=== PATIENT | male | born 1985 | race Caucasian/White ===

== ENCOUNTER 2021-04-11 07:27 | Outpatient (REF) | payer OTHER, SELFPAY ==
[2021-04-11 11:32] LABS: MANUAL DIFF FLAG NO
[2021-04-11 11:43] LABS: Basophils Percent Auto 0.5 % (0-2); Eosinophils Absolute Auto 0.1 X10*3/uL (0.0-0.4); Eosinophils Percent Auto 1.5 % (0-4); Hematocrit 42.1 % (42.0-52.0); Hemoglobin 13.6 g/dl (14.0-18.0); Imm Gran Abs Auto 0.01 X10*3/uL (0.00-0.03); Imm Gran Pct Auto 0.2 % (0.0-0.4); Lymphocytes Percent Auto 31.1 % (20-40); Mean Corpuscular HGB Conc 32.3 g/dl (31.0-36.0); Mean Corpuscular Hemoglobin 27.7 pg (27.0-33.0); Mean Corpuscular Volume 85.7 fL (80.0-98.0); Mean Platelet Volume 10.9 fL (9.4-12.4); Monocytes Absolute Auto 0.6 X10*3/uL (0.1-1.2); Monocytes Percent Auto 8.5 % (2-11); Neutrophils Absolute Auto 3.8 x10*3/uL (2.0-8.3); Neutrophils Percent Auto 58.2 % (45-73); Platelet Count 236 X10*3/uL (160-400); Red Blood Count 4.91 X10*6/uL (4.60-5.80); Red Cell Distribution Width 12.9 % (11.0-16.0); White Blood Count 6.6 X10*3/uL (4.8-10.8)
[2021-04-11 11:54] LABS: Estimated Average Glucose 131 mg/dL; Hemoglobin A1c % 6.2 %
[2021-04-11 12:08] LABS: Alanine Aminotransferase 47 U/L (0-40); Albumin Level 4.4 g/dL (3.5-5.0); Alkaline Phosphatase 70 U/L (39-117); Anion Gap 11 (12-20); Aspartate Amino Transferase 29 U/L (5-37); Bilirubin Total 0.6 mg/dL (0.0-1.0); Blood Urea Nitrogen 10 mg/dL (9-16); Calcium 9.3 mg/dL (8.4-10.2); Carbon Dioxide 25 mmol/L (22-29); Chloride 106 mmol/L (96-108); Cholesterol 198 mg/dL; Estimated Glomerular Filt Rate > 60; Glucose Fasting 119 mg/dL (60-99); HDL Cholesterol 29 mg/dL; LDL Cholesterol Calculated 138 mg/dl; Potassium 4.2 mmol/L (3.3-5.1); Sodium 138 mmol/L (135-145); Total Protein 7.3 g/dL (6.5-8.0); Triglycerides 155 mg/dL
[2021-04-11 12:19] LABS: TSH reflex Free T4 1.67 uIU/mL (0.32-4.0)
== END 2021-04-11 07:28 | disposition home or self-care (01) ==
LOC: HO.HMGCLDS 07:27
PROVIDERS: PCP Internal Medicine; Visit Provider Internal Medicine
DX: E66.09 Other obesity due to excess calories (principal); E78.9 Disorder of lipoprotein metabolism, unspecified; F41.1 Generalized anxiety disorder; R73.03 Prediabetes
CPT/HCPCS: 36415; 80053; 80061; 83036; 84443; 85025

== ENCOUNTER 2021-12-26 15:05 | Outpatient (REF) | payer OTHER, SELFPAY ==
[2021-12-26 15:59] LABS: MANUAL DIFF FLAG NO
[2021-12-26 16:03] LABS: Basophils Absolute Auto 0.1 X10*3/uL (0.0-0.2); Basophils Percent Auto 0.9 % (0-2); Eosinophils Absolute Auto 0.1 X10*3/uL (0.0-0.4); Eosinophils Percent Auto 1.2 % (0-4); Hematocrit 40.3 % (42.0-52.0); Hemoglobin 13.2 g/dl (14.0-18.0); Imm Gran Abs Auto 0.02 X10*3/uL (0.00-0.03); Imm Gran Pct Auto 0.3 % (0.0-0.4); Lymphocytes Absolute Auto 2.1 X10*3/uL (1.2-4.9); Lymphocytes Percent Auto 32.8 % (20-40); Mean Corpuscular HGB Conc 32.8 g/dl (31.0-36.0); Mean Corpuscular Hemoglobin 27.4 pg (27.0-33.0); Mean Corpuscular Volume 83.8 fL (80.0-98.0); Mean Platelet Volume 10.2 fL (9.4-12.4); Monocytes Absolute Auto 0.6 X10*3/uL (0.1-1.2); Monocytes Percent Auto 8.6 % (2-11); Neutrophils Absolute Auto 3.7 x10*3/uL (2.0-8.3); Neutrophils Percent Auto 56.2 % (45-73); Platelet Count 233 X10*3/uL (160-400); Red Blood Count 4.81 X10*6/uL (4.60-5.80); White Blood Count 6.5 X10*3/uL (4.8-10.8)
[2021-12-26 16:17] LABS: Alanine Aminotransferase 58 U/L (0-40); Albumin Level 4.6 g/dL (3.5-5.0); Alkaline Phosphatase 73 U/L (39-117); Anion Gap 16 (12-20); Aspartate Amino Transferase 38 U/L (5-37); Bilirubin Total 0.4 mg/dL (0.0-1.0); Blood Urea Nitrogen 12 mg/dL (9-16); Calcium 9.3 mg/dL (8.4-10.2); Carbon Dioxide 25 mmol/L (22-29); Chloride 103 mmol/L (96-108); Estimated Glomerular Filt Rate > 60; Glucose Random 98 mg/dL (60-115); Potassium 3.9 mmol/L (3.3-5.1); Sodium 140 mmol/L (135-145); Total Protein 7.7 g/dL (6.5-8.0)
[2021-12-26 16:23] LABS: Estimated Average Glucose 140 mg/dL; Hemoglobin A1c % 6.5 %
[2021-12-27 13:47] LABS: LDL Cholesterol Direct 177 mg/dL (<100)
== END 2021-12-26 15:06 | disposition home or self-care (01) ==
LOC: HO.HMGCLDS 15:05
PROVIDERS: PCP Internal Medicine; Visit Provider Internal Medicine
DX: Z00.01 Encounter for general adult medical examination with abnormal findings (principal); E66.09 Other obesity due to excess calories; F41.1 Generalized anxiety disorder; R73.03 Prediabetes; J45.20 Mild intermittent asthma, uncomplicated
CPT/HCPCS: 36415; 80053; 83036; 83721; 85025

== ENCOUNTER 2023-01-02 08:13 | Outpatient (AMB) | payer OTHER, SELFPAY ==
--- NOTE | 2023-01-02 09:46 | A.OFFPC_ITS ---
Intake Visit Reasons: Med Follow up~ Allergies lactose Allergy (Unknown, Verified 01/02/23 09:46) GI upset Seasonal Allergies Allergy (Unknown, Verified 01/02/23 09:46) Unknown Medication List - Last Reconciled 01/02/23 by Sanjuana Balbuena MD fluticasone propionate 50 mcg/actuation (Flonase Allergy Relief) 1 spray intranasal DAILY sertraline 25 mg PO DAILY 90 days Tobacco use date assessed: 01/02/23 Dental Screening Dental Screen Date: 01/02/23 Did you have a dental visit in the last 12 months?: Yes Did you have a dental problem in the last 6 months where you did not have access to dental care?: No Was dental information given to patient?: No HPI Med Follow up~ HPI Details Patient is 37-year-old male this is a telemedicine video conference follow-up Patient is on sertraline 25 mg for anxiety he is doing well no side effects , medication refill provided Patient have a pre diabetes and elevated cholesterol as well for that I would recommend diet controlled He will be having labs again before his next visit in April for physical examination. I have placed order patient is to do that fasting. He offer no new complaints today. [facility] Medical History Pre-diabetes Lipid disorder Asthma, intermittent Anxiety, generalized Surgical History History of wisdom tooth extraction Family History Father No problems noted. Mother HTN (hypertension) Mental health disorder Maternal Grandfather No problems noted. Maternal Grandmother No problems noted. Paternal Grandfather No problems noted. Paternal Grandmother No problems noted. Sister No problems noted. Daughter No problems noted. Social History Housing: House Alcohol intake: current Alcohol intake frequency: a few times a month Patient Tobacco Use Status: Never used Tobacco e-Cigarette/Vaping Use: Never Used service: No Current occupational status: employed Cognitive needs: No Hearing needs: No Vision needs: No Questionnaire Thrive Questionnaire Date Thrive assessed: 06/12/22 AUDIT C Alcohol Use Questionnaire (AUDIT-C) 1. How often do you have a drink containing alcohol?: Never 3. How often do you have six or more drinks on one occasion?: Never Total Score: 0 Score Reviewed/Action Taken: Yes LETICIA-7 AMB Questionnaire LETICIA-7 Date LETICIA - 7 assessed: 06/12/22 Source: Developed by Drs. Jones Brian, Zainab Putnam, Edmond Hansen and colleagues, with an educational ann from [employer]. Review of Systems Const Denies chills and Denies fever(s) ENT Denies epistaxis and Denies nasal discharge Card Denies chest pain Resp Denies chest congestion, Denies cough and Denies hemoptysis GI Denies diarrhea and Denies nausea Skin/Breast Denies rash Neuro Reports no additional complaints Psych Reports no additional complaints Endo Reports no additional complaints Physical exam (Primary Care) Tobacco/Smoking Status: Tobacco use Status Tobacco use date assessed 01/02/23 01/02/23 09:47 Patient Tobacco Use Status Never used Tobacco 01/02/23 09:47 e-Cigarette/Vaping Use Never Used 01/02/23 09:47 Thrive Assessment: Date of Thrive Assessment Date Thrive assessed 06/12/22 01/02/23 09:47 Telehealth Telehealth Location of provider rendering services: practice address Location of patient: address on file Patient Identification confirmed using: Name, : Yes Telehealth method: video Patient verbally consented to treatment: Yes Patient verbally consented to billing insurance company: Yes Patient informed of any privacy concerns related to visit: Yes Minutes spent on Phone/Video with Pt.: 13 Assessment and Plan Assessment & Plan (1) Anxiety, generalized: Code(s): F41.1 - Generalized anxiety disorder (2) Pre-diabetes: Code(s): R73.03 - Prediabetes (3) Lipid disorder: Code(s): E78.9 - Disorder of lipoprotein metabolism, unspecified (4) Asthma, intermittent: Code(s): J45.20 - Mild intermittent asthma, uncomplicated Qualifiers: Asthma complication type: uncomplicated Asthma severity: mild Qualified Code(s): J45.20 - Mild intermittent asthma, uncomplicated Plan Patient is 37-year-old male this is a telemedicine video conference follow-up Patient is on sertraline 25 mg for anxiety he is doing well no side effects , medication refill provided Patient have a pre diabetes and elevated cholesterol as well for that I would recommend diet controlled He will be having labs again before his next visit in April for physical examination. I have placed order patient is to do that fasting. He offer no new complaints today. Orders: Orders Complete Blood Count Auto Diff Today E78.9 - Disorder of lipoprotein metabolism, unspecified, F41.1 - Generalized anxiety disorder, J45.20 - Mild intermittent asthma, uncomplicated, R73.03 - Prediabetes Comprehensive [place]. Panel Fast Today E78.9 - Disorder of lipoprotein metabolism, unspecified, F41.1 - Generalized anxiety disorder, J45.20 - Mild intermittent a sthma, uncomplicated, R73.03 - Prediabetes Lipid Panel Today E78.9 - Disorder of lipoprotein metabolism, unspecified, F41.1 - Generalized anxiety disorder, J45.20 - Mild intermittent asthma, uncomplicated, R73.03 - Prediabetes Hemoglobin A1c Today E78.9 - Disorder of lipoprotein metabolism, unspecified, F41.1 - Generalized anxiety disorder, J45.20 - Mild intermittent asthma, uncomplicated, R73.03 - Prediabetes Medications: Refilled sertraline 25 mg PO DAILY 90 tabs 1RF 90 days Coding Level of Care Code Tele Est Pt Level 3 (05792) Diagnoses Anxiety, generalized F41.1 Pre-diabetes R73.03 Lipid disorder E78.9 Mild intermittent asthma without complication J45.20 Asthma complication type: uncomplicated Asthma severity: mild
== END 2023-01-02 16:42 | disposition home or self-care (01) ==
LOC: HO.HMGC 08:13
PROVIDERS: PCP Internal Medicine; Visit Provider Internal Medicine
DX: F41.1 Generalized anxiety disorder (principal); R73.03 Prediabetes; E78.9 Disorder of lipoprotein metabolism, unspecified; J45.20 Mild intermittent asthma, uncomplicated
CPT/HCPCS: 99213

== ENCOUNTER 2023-05-27 08:37 | Outpatient (AMB) | payer BC, SELFPAY ==
[2023-05-27 08:42] VITALS: BP 136/70; PULSE 86; O2SAT 96; BMI 33.8
--- NOTE | 2023-05-27 08:42 | A.OFFPC_ITS ---
Vital Signs 05/27/23 08:42 Height 6 ft Weight 249 lb BMI 33.8 BP 136/70 Blood Pressure Location Rt brachial Position Sitting Pulse 86 Pulse Source Pulse Oximeter Pulse Oximetry (%) 96 Oxygen Delivery Method Room Air Intake Visit Reasons: Annual Physical Allergies lactose Allergy (Unknown, Verified 05/27/23 08:42) GI upset Seasonal Allergies Allergy (Unknown, Verified 05/27/23 08:42) Unknown Medication List - Last Reconciled 05/27/23 by Sanjuana Balbuena MD fluticasone propionate 50 mcg/actuation (Flonase Allergy Relief) 1 spray intranasal DAILY sertraline 25 mg PO DAILY 90 days Tobacco use date assessed: 05/27/23 Dental Screening Dental Screen Date: 05/27/23 Did you have a dental visit in the last 12 months?: Yes Did you have a dental problem in the last 6 months where you did not have access to dental care?: No Was dental information given to patient?: Patient has dentist HPI Annual Physical HPI Details Patient is a 38-year-old gentleman came in today for physical examination Patient have a history of lipid disorder: Intermittent asthma doing well at this time, allergies, obesity, anxiety. Blood pressure is stable BMI is elevated patient need to lose weight Anxiety stable Lab order placed to be done fasting Follow-up 6 months [facility] Medical History Pre-diabetes Lipid disorder Asthma, intermittent Anxiety, generalized Surgical History History of wisdom tooth extraction Family History Father No problems noted. Mother HTN (hypertension) Mental health disorder Maternal Grandfather No problems noted. Maternal Grandmother No problems noted. Paternal Grandfather No problems noted. Paternal Grandmother No problems noted. Sister No problems noted. Daughter No problems noted. Social History Housing: House Alcohol intake: current Alcohol intake frequency: a few times a month Patient Tobacco Use Status: Never used Tobacco e-Cigarette/Vaping Use: Never Used service: No Current occupational status: employed Cognitive needs: No Hearing needs: No Vision needs: No Questionnaire PHQ-9 Over the last 2 weeks, how often have you been bothered by any of the following problems? 1. Little interest or pleasure in doing things: not at all 2. Feeling down, depressed, or hopeless: not at all 3. Trouble falling or staying asleep, or sleeping too much: several days 4. Feeling tired or having little energy: not at all 5. Poor appetite or overeating: not at all 6. Feeling bad about yourself - or that you are a failure or have let yourself o r your family down: not at all 7. Trouble concentrating on things, such as reading the newspaper or watching television: not at all 8. Moving or speaking so slowly that other people could have noticed. Or the opposite - being so fidgety or restless that you have been moving around a lot more than usual: not at all 9. Thoughts that you would be better off or of hurting yourself in some way: not at all Total score: 1 Depression Screening Interpretation: Negative Depression Screening Done: Yes 52370 - PHQ-9 Billing: Yes Source: Developed by Drs. Jones Brian, Zainab Putnam, Edmond gerber nd colleagues, with an educational ann from [employer]. Thrive Questionnaire Date Thrive assessed: 06/12/22 AUDIT C Alcohol Use Questionnaire (AUDIT-C) 1. How often do you have a drink containing alcohol?: Monthly or less 2. How many drinks containing alcohol do you have on a typical day when you are drinking?: 1 or 2 3. How often do you have six or more drinks on one occasion?: Never Total Score: 1 Score Reviewed/Action Taken: Yes LETICIA-7 AMB Questionnaire LETICIA-7 Date LETICIA - 7 assessed: 05/27/23 Feeling nervous, anxious, or on edge: 0 = Not at all Not being able to stop or control worryin = Not at all Worrying too much about different things: 0 = Not at all Trouble relaxin = Not at all Being so restless that it is hard to sit still: 0 = Not at all Becoming easily annoyed or irritable: 0 = Not at all Feeling afraid as if something awful might happen: 0 = Not at all Total LETICIA-7 score (0-4 normal; 5-9 mild; 10-14 moderate; 15-21 severe): 0 Source: Developed by Drs. Jones Brian, Zainab Putnam, Edmond Hansen and colleagues, with an educational ann from [employer]. LETICIA-7 Assessment Billing LETICIA-7 Assessment Tool: LETICIA-7 Assessment 30633 Review of Systems Const Denies chills, Denies fever(s) and Denies headache(s) Eyes Denies blurry vision ENT Denies headache(s), Denies nasal discharge, Denies nasal obstruction, Denies odynophagia and Denies sinus pain Card Denies chest pain at rest and Denies chest pain with activity Resp Denies cough and Denies hemoptysis GI Denies diarrhea, Denies odynophagia, Denies vomiting and Denies hematemesis Reports as per HPI Musc Denies abnormal gait Skin/Breast Reports as per HPI Neuro Denies Neuro-related abnormal movements, Denies Abnormal speech present, Denies abnormal gait, Denies headache(s) and Denies Sensory deficit (Neuro) Psych Denies mood swings and Denies paranoia Endo Reports as per HPI Junior/Lymph Reports as per HPI Aller/Immun Reports as per HPI Physical exam (Primary Care) Vital Signs: Last Vital Signs Pulse 86 05/27/23 08:42 BP 136/70 05/27/23 08:42 Pulse Ox 96 05/27/23 08:42 Oxygen Delivery Method Room Air 05/27/23 08:42 BMI result Body Mass Index 33.8 Tobacco/Smoking Status: Tobacco use Status Tobacco use date assessed 05/27/23 05/27/23 08:46 Patient Tobacco Use Status Never used Tobacco 05/27/23 08:46 e-Cigarette/Vaping Use Never Used 05/27/23 08:46 PHQ-9: PHQ-9 Score PHQ-9: Total score 1 05/27/23 08:49 Depression Screening Interpretation: Negative Thrive Assessment: Date of Thrive Assessment Date Thrive assessed 06/12/22 05/27/23 08:46 Const General: cooperative, comfortable and no acute distress Orientation/consciousness: patient oriented x3 HENMT Head: Yes normocephalic and Yes atraumatic Eyes General: appearance normal, both eyes and all related structures Pupils: Equal, round and reactive pupils present EOM: EOMs intact bilaterally Neck Neck: Yes supple and No lymphadenopathy Thyroid: Thyroid normal Lymphatic: no lymphadenopathy noted Resp Effort & Inspection: normal respiratory effort and able to speak in complete sentences Auscultation: clear to auscultation bilaterally Cardio Heart sounds: S1 normal heart sound present and S2 normal heart sound present GI Palpation (GI): Soft to palpation and nontender Auscultation: normal bowel sounds General: Yes no CVA tenderness Back/Spine/Pelvis Back: no CVA tenderness Skin General skin exam: elasticity normal and turgor normal Neuro General: patient oriented x3 and gait normal Cranial nerves: Yes Equal, round and reactive pupils present Speech: No Abnormal speech present Sensory Exam: No Sensory deficit (Neuro) Coordination: tandem gait normal and Romberg test negative Extrem General: Yes normal exam except as noted and No edema Assessment and Plan Assessment & Plan (1) Encounter for general adult medical examination with abnormal findings: Code(s): Z00.01 - Encounter for general adult medical examination with abnormal findings (2) Obesity due to excess calories: Code(s): E66.09 - Other obesity due to excess calories Qualifiers: Obesity classification: adult class 1 (BMI 30 - 34.9) Serious obesity comorbidity presence: without serious comorbidity Body mass index: BMI 33.0- 33.9 Qualified Code(s): E66.09 - Other obesity due to excess calories; Z68.33 - Body mass index [BMI] 33.0-33.9, adult (3) Anxiety, generalized: Code(s): F41.1 - Generalized anxiety disorder (4) Pre-diabetes: Code(s): R73.03 - Prediabetes (5) Lipid disorder: Code(s): E78.9 - Disorder of lipoprotein metabolism, unspecified (6) Asthma, intermittent: Code(s): J45.20 - Mild intermittent asthma, uncomplicated Qualifiers: Asthma severity: mild Asthma complication type: uncomplicated Qualified Code(s): J45.20 - Mild intermittent asthma, uncomplicated (7) Dyspepsia: Code(s): R10.13 - Epigastric pain Plan Patient is a 38-year-old gentleman came in today for physical examination Patient have a history of lipid disorder: Intermittent asthma doing well at this time, allergies, obesity, anxiety. Blood pressure is stable BMI is elevated patient need to lose weight Anxiety stable Patient is also prediabetic Lab order placed to be done fasting Follow-up 6 months Coding Level of Care Code Est Pt Prev Care 40-64y(16068) Diagnoses Encounter for general adult medical examination with abnormal findings Z00.01 Class 1 obesity due to excess calories without serious comorbidity with body mass index (BMI) of 33.0 to 33.9 in adult E66.09; Z68.33 Obesity classification: adult class 1 (BMI 30 - 34.9) Serious obesity comorbidity presence: without serious comorbidity Body mass index: BMI 33.0-33.9 Anxiety, generalized F41.1 Pre-diabetes R73.03 Lipid disorder E78.9 Mild intermittent asthma without complication J45.20 Asthma severity: mild Asthma complication type: uncomplicated Dyspepsia R10.13 Additional Codes LETICIA-7 Assessment Billing - LETICIA-7 Assessment Tool: LETICIA-7 Assessment 27725 ([id number])
== END 2023-05-27 09:01 | disposition home or self-care (01) ==
PROVIDERS: PCP Internal Medicine; Visit Provider Internal Medicine
DX: Z00.00 Encounter for general adult medical examination without abnormal findings (principal); E66.09 Other obesity due to excess calories; Z68.33 Body mass index [BMI] 33.0-33.9, adult; F41.1 Generalized anxiety disorder; R73.03 Prediabetes; E78.9 Disorder of lipoprotein metabolism, unspecified; J45.20 Mild intermittent asthma, uncomplicated
CPT/HCPCS: 99396

== ENCOUNTER 2023-05-27 09:02 | Outpatient (REF) | payer BC, SELFPAY ==
[2023-05-27 10:23] LABS: MANUAL DIFF FLAG NO
[2023-05-27 10:39] LABS: Basophils Percent Auto 0.7 % (0-2); Eosinophils Absolute Auto 0.1 X10*3/uL (0.0-0.4); Eosinophils Percent Auto 0.8 % (0-4); Hemoglobin 13.5 g/dl (14.0-18.0); Imm Gran Abs Auto 0.02 X10*3/uL (0.00-0.03); Imm Gran Pct Auto 0.3 % (0.0-0.4); Lymphocytes Absolute Auto 2.1 X10*3/uL (1.2-4.9); Lymphocytes Percent Auto 33.8 % (20-40); Mean Corpuscular HGB Conc 32.1 g/dl (31.0-36.0); Mean Corpuscular Hemoglobin 27.3 pg (27.0-33.0); Mean Platelet Volume 10.7 fL (9.4-12.4); Monocytes Absolute Auto 0.5 X10*3/uL (0.1-1.2); Monocytes Percent Auto 8.3 % (2-11); Neutrophils Absolute Auto 3.5 x10*3/uL (2.0-8.3); Neutrophils Percent Auto 56.1 % (45-73); Platelet Count 223 X10*3/uL (160-400); Red Blood Count 4.94 X10*6/uL (4.60-5.80); Red Cell Distribution Width 13.1 % (11.0-16.0); White Blood Count 6.2 X10*3/uL (4.8-10.8)
[2023-05-27 10:42] LABS: Estimated Average Glucose 140 mg/dL; Hemoglobin A1c % 6.5 % (<6.0)
[2023-05-27 10:55] LABS: Alanine Aminotransferase 45 U/L (0-40); Albumin Level 4.3 g/dL (3.5-5.0); Alkaline Phosphatase 69 U/L (39-117); Anion Gap 13 (12-20); Aspartate Amino Transferase 26 U/L (5-37); Bilirubin Total 0.4 mg/dL (0.0-1.0); Blood Urea Nitrogen 13 mg/dL (9-16); Calcium 9.1 mg/dL (8.4-10.2); Carbon Dioxide 24 mmol/L (22-29); Chloride 105 mmol/L (96-108); Cholesterol 201 mg/dL (<200); Estimated Glomerular Filt Rate > 60; Glucose Fasting 137 mg/dL (60-99); HDL Cholesterol 32 mg/dL (>40); LDL Cholesterol Calculated 148 mg/dL (<100); Potassium 4.2 mmol/L (3.3-5.1); Sodium 138 mmol/L (135-145); Total Protein 7.6 g/dL (6.5-8.0); Triglycerides 109 mg/dL (<150)
== END 2023-05-27 09:03 | disposition home or self-care (01) ==
LOC: HO.HMGCLDS 09:02
PROVIDERS: PCP Internal Medicine; Visit Provider Internal Medicine
DX: F41.1 Generalized anxiety disorder (principal); R73.03 Prediabetes; E78.9 Disorder of lipoprotein metabolism, unspecified; J45.20 Mild intermittent asthma, uncomplicated
CPT/HCPCS: 36415; 80053; 80061; 83036; 85025

== ENCOUNTER 2023-11-25 09:37 | Outpatient (AMB) | payer BC, SELFPAY ==
[2023-11-25 09:38] VITALS: BP 126/78; PULSE 82; O2SAT 95; BMI 34.5
--- NOTE | 2023-11-25 09:38 | A.OFFPC_ITS ---
Vital Signs 11/25/23 09:38 Height 6 ft Weight 254 lb 4 oz BMI 34.5 BP 126/78 Blood Pressure Location Rt brachial Position Sitting Pulse 82 Pulse Source Pulse Oximeter Pulse Oximetry (%) 95 Oxygen Delivery Method Room Air Intake Visit Reasons: 6 month follow up Allergies lactose Allergy (Unknown, Verified 11/25/23 09:41) GI upset Seasonal Allergies Allergy (Unknown, Verified 11/25/23 09:41) Unknown Medication List - Last Reconciled 11/25/23 by Sanjuana Balbuena MD fluticasone propionate 50 mcg/actuation (Flonase Allergy Relief) 1 spray intranasal DAILY sertraline 25 mg PO DAILY 90 days Tobacco use date assessed: 11/25/23 Dental Screening Dental Screen Date: 11/25/23 Did you have a dental visit in the last 12 months?: Yes Did you have a dental problem in the last 6 months where you did not have access to dental care?: No Was dental information given to patient?: Patient has dentist HPI 6 month follow up HPI Details Patient is a 38-year-old gentleman with a history of lipid disorder, intermittent asthma, anxiety, obesity, allergies, diabetes mellitus diet- controlled Came in for his follow-up appointment Patient is doing well, offers no new complaints today , he is going to [facility] next month His hemoglobin A1c came back at 7.5 after patient left We will book a telemedicine visit for this week to talk about it Labs done in April reviewed I see that he has gained 5 lb since April We talked about obesity today, I would recommend for him to start exercising and eat healthy Labs need to be repeated before next visit for physical exam in 6 months He has slightly elevated LFT of 45 ALT which is stable LDL was 148 in April we will continue to monitor Follow-up 3 months [facility] Medical History Pre-diabetes Lipid disorder Asthma, intermittent Anxiety, generalized Surgical History History of wisdom tooth extraction Family History Father No problems noted. Mother HTN (hypertension) Mental health disorder Maternal Grandfather No problems noted. Maternal Grandmother No problems noted. Paternal Grandfather No problems noted. Paternal Grandmother No problems noted. Sister No problems noted. Daughter No problems noted. Social History Housing: House Alcohol intake: current Alcohol intake frequency: a few times a month Patient Tobacco Use Status: Never used Tobacco e-Cigarette/Vaping Use: Never Used service: No Current occupational status: employed Cognitive needs: No Hearing needs: No Vision needs: No Questionnaire PHQ-9 Over the last 2 weeks, how often have you been bothered by any of the following problems? 1. Little interest or pleasure in doing things: not at all 2. Feeling down, depressed, or hopeless: not at all 3. Trouble falling or staying asleep, or sleeping too much: not at all 4. Feeling tired or having little energy: not at all 5. Poor appetite or overeating: not at all 6. Feeling bad about yourself - or that you are a failure or have let yourself or your family down: not at all 7. Trouble concentrating on things, such as reading the newspaper or watching television: not at all 8. Moving or speaking so slowly that other people could have noticed. Or the opposite - being so fidgety or restless that you have been moving around a lot more than usual: not at all 9. Thoughts that you would be better off or of hurting yourself in some way: not at all Total score: 0 Depression Screening Interpretation: Negative Depression Screening Done: Yes 18275 - PHQ-9 Billing: Yes Source: Developed by Drs. Jones Brian, Zainab Putnam, Edmond Hansen and colleagues, with an educational ann from [employer]. Thrive Questionnaire Date Thrive assessed: 11/25/23 I am a: Patient What is your living situation today?: I have a steady place to live Within the past 12 months, did the food you bought not last and you didn't have the money to get more?: Never true Within the past 12 months, did you worry whether your food would run out before you got money to buy more?: Never true Do you have trouble paying for medicines?: No Do you have trouble getting transportation to medical appointments?: No Do you have trouble paying your heating and electricity bill?: No Do you have trouble taking care of your child, family member or friend?: No Do you have trouble with day-to-day activities such as bathing, preparing meals, shopping, managing finances, etc.?: No Are you currently unemployed and looking for a job?: No Are you interested in more education?: No Please select the resources that you would like help with: Housing/[facility] Currently or been in a relationship where the following occur: No concerns reported THRIVE Score: 0 AUDIT C Alcohol Use Questionnaire (AUDIT-C) 1. How often do you have a drink containing alcohol?: 2-4 times a month 2. How many drinks containing alcohol do you have on a typical day when you are drinking?: 1 or 2 3. How often do you have six or more drinks on one occasion?: Never Total Score: 2 Score Reviewed/Action Taken: Yes LETICIA-7 AMB Questionnaire LETICIA-7 Date LETICIA - 7 assessed: 11/25/23 Feeling nervous, anxious, or on edge: 0 = Not at all Not being able to stop or control worryin = Not at all Worrying too much about different things: 0 = Not at all Trouble relaxin = Not at all Being so restless that it is hard to sit still: 0 = Not at all Becoming easily annoyed or irritable: 0 = Not at all Feeling afraid as if something awful might happen: 0 = Not at all Total LETICIA-7 score (0-4 normal; 5-9 mild; 10-14 moderate; 15-21 severe): 0 Source: Developed by Drs. Jones Brian, Zainab Putnam, Edmond Hansen and colleagues, with an educational ann from [employer]. LETICIA-7 Assessment Billing LETICIA-7 Assessment Tool: LETICIA-7 Assessment 65759 Review of Systems Const Denies chills and Denies fever(s) ENT Denies epistaxis and Denies nasal discharge Card Denies chest pain Resp Denies chest congestion, Denies cough and Denies hemoptysis GI Denies diarrhea and Denies nausea Skin/Breast Denies rash Neuro Reports no additional complaints Psych Reports no additional complaints Endo Reports no additional complaints Physical exam (Primary Care) Vital Signs: Last Vital Signs Pulse 82 11/25/23 09:38 BP 126/78 11/25/23 09:38 Pulse Ox 95 11/25/23 09:38 Oxygen Delivery Method Room Air 11/25/23 09:38 BMI result Body Mass Index 34.5 Tobacco/Smoking Status: Tobacco use Status Tobacco use date assessed 11/25/23 11/25/23 09:42 Patient Tobacco Use Status Never used Tobacco 11/25/23 09:42 e-Cigarette/Vaping Use Never Used 11/25/23 09:42 PHQ-9: PHQ-9 Score PHQ-9: Total score 0 11/25/23 10:00 Depression Screening Interpretation: Negative Thrive Assessment: Date of Thrive Assessment Date Thrive assessed 11/25/23 11/25/23 09:42 Currently or been in a relationship where the following occur: No concerns reported Const General: cooperative, comfortable and no acute distress Orientation/consciousness: patient oriented x3 HENMT Head: Yes normocephalic Eyes General: appearance normal, both eyes and all related structures Neck Neck: Yes supple Resp Effort & Inspection: normal respiratory effort, no cough and no stridor Cardio Rhythm: regular rhythm Heart sounds: S1 normal heart sound present and S2 normal heart sound present Skin General skin exam: turgor normal Neuro General: patient oriented x3, tone normal and moves all extremities Extrem Right lower extremity: no edema Left lower extremity: no edema Results AMB Hemoglobin A1c AMB Hemoglobin A1c 7.5 % Last Edit by Helder Beck CMA on 11/25/23 10: 10 Results Reviewed Results Reviewed: Laboratory Last Values Hgb A1c (Clinic) 7.5 % (4.0-6.0) H 11/25/23 10:10 Assessment and Plan Assessment & Plan (1) Diet-controlled diabetes mellitus: Code(s): E11.9 - Type 2 diabetes mellitus without complications (2) Anxiety, generalized: Code(s): F41.1 - Generalized anxiety disorder (3) Obesity due to excess calories: Code(s): E66.09 - Other obesity due to excess calories Qualifiers: Body mass index: BMI 33.0-33.9 Obesity classification: adult class 1 (BMI 30 - 34.9) Serious obesity comorbidity presence: without serious comorbidity Qualified Code(s): E66.09 - Other obesity due to excess calories; Z68.33 - Body mass index [BMI] 33.0-33.9, adult (4) Lipid disorder: Code(s): E78.9 - Disorder of lipoprotein metabolism, unspecified (5) Asthma, intermittent: Code(s): J45.20 - Mild intermittent asthma, uncomplicated Qualifiers: Asthma complication type: uncomplicated Asthma severity: mild Qualified Code(s): J45.20 - Mild intermittent asthma, uncomplicated Plan Patient is a 38-year-old gentleman with a history of lipid disorder, intermittent asthma, anxiety, obesity, allergies, diabetes mellitus diet- controlled Came in for his follow-up appointment Patient is doing well, offers no new complaints today , he is going to [facility] next month His hemoglobin A1c came back at 7.5 after patient left We will book a telemedicine visit for this week to talk about it Labs done in April reviewed I see that he has gained 5 lb since April We talked about obesity today, I would recommend for him to start exercising and eat healthy Labs need to be repeated before next visit for physical exam in 6 months He has slightly elevated LFT of 45 ALT which is stable LDL was 148 in April we will continue to monitor Follow-up 3 months Orders: Orders Complete Blood Count Auto Diff Today E11.9 - Type 2 diabetes mellitus without complications, E66.09 - Other obesity due to excess calories, E78.9 - Disorder of lipoprotein metabolism, unspecified, F41.1 - Generalized anxiety disorder, J45.20 - Mild intermittent asthma, uncomplicated, Z68.33 - Body mass index [BMI] 33.0-33.9, adult Comprehensive [place]. Panel Fast Today E11.9 - Type 2 diabetes mellitus without complications, E66.09 - Other obesity due to excess calories, E78.9 - Disorder of lipoprotein metabolism, unspecified, F41.1 - Generalized anxiety disorder, J45.20 - Mild intermittent asthma, uncomplicated, Z68.33 - Body mass index [BMI] 33.0-33.9, adult Microalbumin, Random (w Creat) Today E11.9 - Type 2 diabetes mellitus without complications, E66.09 - Other obesity due to excess calories, E78.9 - Disorder of lipoprotein metabolism, unspecified, F41.1 - Generalized anxiety disorder, J45.20 - Mild intermittent asthma, uncomplicated, Z68.33 - Body mass index [BMI] 33.0-33.9, adult Hemoglobin A1c Today E11.9 - Type 2 diabetes mellitus without complications, E66.09 - Other obesity due to excess calories, E78.9 - Disorder of lipoprotein metabolism, unspecified, F41.1 - Generalized anxiety disorder, J45.20 - Mild i ntermittent asthma, uncomplicated, Z68.33 - Body mass index [BMI] 33.0-33.9, adult Lipid Panel Today E11.9 - Type 2 diabetes mellitus without complications, E66.09 - Other obesity due to excess calories, E78.9 - Disorder of lipoprotein metabolism, unspecified, F41.1 - Generalized anxiety disorder, J45.20 - Mild intermittent asthma, uncomplicated, Z68.33 - Body mass index [BMI] 33.0-33.9, adult AMB Hemoglobin A1c Today Z13.9 - Encounter for screening, unspecified Coding Level of Care Code Est Pt Level 4 (53811) Diagnoses Diet-controlled diabetes mellitus E11.9 Anxiety, generalized F41.1 Class 1 obesity due to excess calories without serious comorbidity with body mass index (BMI) of 33.0 to 33.9 in adult E66.09; Z68.33 Body mass index: BMI 33.0-33.9 Obesity classification: adult class 1 (BMI 30 - 34.9) Serious obesity comorbidity presence: without serious comorbidity Lipid disorder E78.9 Mild intermittent asthma without complication J45.20 Asthma complication type: uncomplicated Asthma severity: mild Additional Codes LETICIA-7 Assessment Billing - LETICIA-7 Assessment Tool: LETICIA-7 Assessment [id number] ([id number])
== END 2023-11-25 09:58 | disposition home or self-care (01) ==
PROVIDERS: PCP Internal Medicine; Visit Provider Internal Medicine
DX: E11.9 Type 2 diabetes mellitus without complications (principal); F41.1 Generalized anxiety disorder; E66.09 Other obesity due to excess calories; Z68.33 Body mass index [BMI] 33.0-33.9, adult; E78.9 Disorder of lipoprotein metabolism, unspecified; J45.20 Mild intermittent asthma, uncomplicated
CPT/HCPCS: 83036; 99214

== ENCOUNTER 2024-02-27 11:52 | Outpatient (AMB) | payer BC, SELFPAY ==
[2024-02-27 12:00] VITALS: BP 122/80; PULSE 86; O2SAT 98; BMI 32.5
--- NOTE | 2024-02-27 12:00 | A.OFFPC_ITS ---
Vital Signs 02/27/24 12:00 Height 6 ft Weight 240 lb BMI 32.5 BP 122/80 Blood Pressure Location Rt brachial Position Sitting Pulse 86 Pulse Source Pulse Oximeter Pulse Oximetry (%) 98 Intake Visit Reasons: 3M F/u~ Allergies lactose Allergy (Unknown, Verified 02/27/24 12:02) GI upset Seasonal Allergies Allergy (Unknown, Verified 02/27/24 12:02) Unknown Medication List - Last Reviewed 02/27/24 by Helder Beck CMA blood sugar diagnostic (FreeStyle Lite Strips) Check blood sugar once daily As directed blood-glucose meter (FreeStyle Lite Meter kit) Check blood sugar once daily As directed fluticasone propionate 50 mcg/actuation (Flonase Allergy Relief) 1 spray intranasal DAILY lancets (FreeStyle Lancets) Check blood sugar once daily As directed metformin 850 mg PO DAILY sertraline 25 mg PO DAILY 90 days Tobacco use date assessed: 11/25/23 Dental Screening Dental Screen Date: 11/25/23 HPI 3M F/u~ HPI Details Patient is a 39-year-old gentleman with a history of lipid disorder, interm ittent asthma, anxiety, obesity, allergies, diabetes mellitus Came in for his follow-up appointment Patient was supposed to have labs done before this visit but he forgot He will have it done tomorrow Patient is doing well, offers no new complaints today His last hemoglobin A1c was 7.5 after Need to lose weight, patient is trying Slight elevation in LFT, we are monitoring it Follow-up May for physical exam [facility] Medical History Pre-diabetes Lipid disorder Asthma, intermittent Anxiety, generalized Surgical History History of wisdom tooth extraction Family History Father No problems noted. Mother HTN (hypertension) Mental health disorder Maternal Grandfather No problems noted. Maternal Grandmother No problems noted. Paternal Grandfather No problems noted. Paternal Grandmother No problems noted. Sister No problems noted. Daughter No problems noted. Social History Housing: House Alcohol intake: current Alcohol intake frequency: a few times a month Patient Tobacco Use Status: Never used Tobacco e-Cigarette/Vaping Use: Never Used service: No Current occupational status: employed Cognitive needs: No Hearing needs: No Vision needs: No Questionnaire Thrive Questionnaire Date Thrive assessed: 11/25/23 I am a: Patient What is your living situation today?: I have a steady place to live Within the past 12 months, did the food you bought not last and you didn't have the money to get more?: Never true Within the past 12 months, did you worry whether your food would run out before you got money to buy more?: Never true Do you have trouble paying for medicines?: No Do you have trouble getting transportation to medical appointments?: No Do you have trouble paying your heating and electricity bill?: No Do you have trouble taking care of your child, family member or friend?: No Do you have trouble with day-to-day activities such as bathing, preparing meals, shopping, managing finances, etc.?: No Are you currently unemployed and looking for a job?: No Are you interested in more education?: No Please select the resources that you would like help with: None Currently or been in a relationship where the following occur: No concerns reported THRIVE Score: 0 LETICIA-7 AMB Questionnaire LETICIA-7 Date LETICIA - 7 assessed: 11/25/23 Source: Developed by Drs. Jones Brian, Zainab Putnam, Edmond Hansen and colleagues, with an educational ann from [employer]. Review of Systems Const Denies chills and Denies fever(s) ENT Denies epistaxis and Denies nasal discharge Card Denies chest pain Resp Denies chest congestion, Denies cough and Denies hemoptysis GI Denies diarrhea and Denies nausea Skin/Breast Denies rash Neuro Reports no additional complaints Psych Reports no additional complaints Endo Reports no additional complaints Physical exam (Primary Care) Vital Signs: Last Vital Signs Pulse 86 02/27/24 12:00 BP 122/80 02/27/24 12:00 Pulse Ox 98 02/27/24 12:00 BMI result Body Mass Index 32.5 Tobacco/Smoking Status: Tobacco use Status Tobacco use date assessed 11/25/23 02/27/24 12:02 Patient Tobacco Use Status Never used Tobacco 02/27/24 12:02 e-Cigarette/Vaping Use Never Used 02/27/24 12:02 Thrive Assessment: Date of Thrive Assessment Date Thrive assessed 11/25/23 02/27/24 12:02 Currently or been in a relationship where the following occur: No concerns reported Const General: cooperative, comfortable and no acute distress Orientation/consciousness: patient oriented x3 HENMT Head: Yes normocephalic Eyes General: appearance normal, both eyes and all related structures Neck Neck: Yes supple Resp Effort & Inspection: normal respiratory effort, no cough and no stridor Cardio Rhythm: regular rhythm Heart sounds: S1 normal heart sound present and S2 normal heart sound present Skin General skin exam: turgor normal Neuro General: patient oriented x3, tone normal and moves all extremities Extrem Right lower extremity: no edema Left lower extremity: no edema Coding Level of Care Code Est Pt Level 4 (37465) Diagnoses Controlled type 2 diabetes mellitus with other specified complication, without long-term current use of insulin E11.69 Diabetes mellitus fci insulin use: without computer terminal operator use Diabetes mellitus complication status: with other specified complication Anxiety, generalized F41.1 Lipid disorder E78.9 Class 1 obesity due to excess calories without serious comorbidity with body mass index (BMI) of 33.0 to 33.9 in adult E66.09; Z68.33 Obesity classification: adult class 1 (BMI 30 - 34.9) Serious obesity comorbidity presence: without serious comorbidity Body mass index: BMI 33.0-33.9 Mild intermittent asthma without complication J45.20 Asthma severity: mild Asthma complication type: uncomplicated Assessment & Plan Assessment & Plan (1) Diabetes mellitus type 2, controlled: Code(s): E11.9 - Type 2 diabetes mellitus without complications Category: Medical Qualifiers: Diabetes mellitus computer terminal operator insulin use: without computer terminal operator use Diabetes mellitus complication status: with other specified complication Qualified Code(s): E11.69 - Type 2 diabetes mellitus with other specified complication (2) Anxiety, generalized: Code(s): F41.1 - Generalized anxiety disorder Category: Medical (3) Lipid disorder: Code(s): E78.9 - Disorder of lipoprotein metabolism, unspecified Category: Medical (4) Obesity due to excess calories: Code(s): E66.09 - Other obesity due to excess calories Category: Medical Qualifiers: Obesity classification: adult class 1 (BMI 30 - 34.9) Serious obesity comorbidity presence: without serious comorbidity Body mass index: BMI 33.0- 33.9 Qualified Code(s): E66.09 - Other obesity due to excess calories; Z68.33 - Body mass index [BMI] 33.0-33.9, adult (5) Asthma, intermittent: Code(s): J45.20 - Mild intermittent asthma, uncomplicated Category: Medical Qualifiers: Asthma severity: mild Asthma complication type: uncomplicated Qualified Code(s): J45.20 - Mild intermittent asthma, uncomplicated Plan Patient is a 39-year-old gentleman with a history of lipid disorder, intermittent asthma, anxiety, obesity, allergies, diabetes mellitus Came in for his follow-up appointment Patient was supposed to have labs done before this visit but he forgot He will have it done tomorrow Patient is doing well, offers no new complaints today His last hemoglobin A1c was 7.5 after Anxiety stable, patient is taking sertraline 25 mg Allergies controlled with Flonase nasal spray Need to lose weight, patient is trying Slight elevation in LFT, we are monitoring it Follow-up May for physical exam
== END 2024-02-27 13:16 | disposition home or self-care (01) ==
LOC: HO.HMCC 11:53
PROVIDERS: PCP Internal Medicine; Visit Provider Internal Medicine
DX: E11.69 Type 2 diabetes mellitus with other specified complication (principal); F41.1 Generalized anxiety disorder; E78.9 Disorder of lipoprotein metabolism, unspecified; E66.09 Other obesity due to excess calories; Z68.33 Body mass index [BMI] 33.0-33.9, adult; J45.20 Mild intermittent asthma, uncomplicated

== ENCOUNTER → 2024-02-27 11:52 | Outpatient (BNVA) | payer BC, SELFPAY | PROVIDERS: PCP Internal Medicine; Visit Provider Internal Medicine ==

== ENCOUNTER 2024-02-28 09:56 | Outpatient (REF) | payer BC, SELFPAY ==
[2024-02-28 11:18] LABS: MANUAL DIFF FLAG NO
[2024-02-28 11:22] LABS: Basophils Percent Auto 0.5 % (0-2); Eosinophils Absolute Auto 0.1 X10*3/uL (0.0-0.4); Eosinophils Percent Auto 1.2 % (0-4); Hematocrit 42.3 % (42.0-52.0); Hemoglobin 13.7 g/dl (14.0-18.0); Imm Gran Abs Auto 0.02 X10*3/uL (0.00-0.03); Imm Gran Pct Auto 0.3 % (0.0-0.4); Lymphocytes Absolute Auto 1.6 X10*3/uL (1.2-4.9); Lymphocytes Percent Auto 24.6 % (20-40); Mean Corpuscular HGB Conc 32.4 g/dl (31.0-36.0); Mean Corpuscular Hemoglobin 27.2 pg (27.0-33.0); Mean Corpuscular Volume 83.9 fL (80.0-98.0); Mean Platelet Volume 10.4 fL (9.4-12.4); Monocytes Absolute Auto 0.5 X10*3/uL (0.1-1.2); Monocytes Percent Auto 6.8 % (2-11); Neutrophils Absolute Auto 4.4 x10*3/uL (2.0-8.3); Neutrophils Percent Auto 66.6 % (45-73); Platelet Count 244 X10*3/uL (160-400); Red Blood Count 5.04 X10*6/uL (4.60-5.80); Red Cell Distribution Width 13.2 % (11.0-16.0); White Blood Count 6.6 X10*3/uL (4.8-10.8)
[2024-02-28 11:27] LABS: Estimated Average Glucose 137 mg/dL; Hemoglobin A1C 169.2317 umol/L; Hemoglobin A1c % 6.4 % (<6.0); Total Hemoglobin (HGBA1C) 3668.4262 umol/L
[2024-02-28 12:05] LABS: Alanine Aminotransferase 48 U/L (0-40); Albumin Level 4.5 g/dL (3.5-5.0); Alkaline Phosphatase 72 U/L (39-117); Anion Gap 14 (12-20); Aspartate Amino Transferase 31 U/L (5-37); Bilirubin Total 0.5 mg/dL (0.0-1.0); Blood Urea Nitrogen 12 mg/dL (9-16); Calcium 9.3 mg/dL (8.4-10.2); Carbon Dioxide 23 mmol/L (22-29); Chloride 105 mmol/L (96-108); Cholesterol 213 mg/dL (<200); Estimated Glomerular Filt Rate > 60; Glucose Fasting 143 mg/dL (60-99); HDL Cholesterol 35 mg/dL (>40); LDL Cholesterol Calculated 150 mg/dL (<100); Potassium 4.2 mmol/L (3.3-5.1); Sodium 138 mmol/L (135-145); Triglycerides 140 mg/dL (<150)
[2024-02-28 14:16] LABS: Creatinine Urine 330.88 mg/dL; Microalbum/Creatinine Ratio Ur 17.2 ug/mg cr (<30)
== END 2024-02-28 09:57 | disposition home or self-care (01) ==
LOC: HO.HMGCLDS 09:56
PROVIDERS: PCP Internal Medicine; Visit Provider Internal Medicine
DX: E11.9 Type 2 diabetes mellitus without complications (principal); E66.09 Other obesity due to excess calories; Z68.33 Body mass index [BMI] 33.0-33.9, adult; F41.1 Generalized anxiety disorder; E78.9 Disorder of lipoprotein metabolism, unspecified; J45.20 Mild intermittent asthma, uncomplicated
CPT/HCPCS: 36415; 80053; 80061; 82043; 82570; 83036; 85025

== ENCOUNTER 2024-06-02 11:34 | Outpatient (AMB) | payer BC, SELFPAY ==
[2024-06-02 11:36] VITALS: BP 126/74; PULSE 74; RESP 18; TEMP 36.8; O2SAT 96; BMI 33.4
--- NOTE | 2024-06-02 11:36 | A.OFFPC_ITS ---
Vital Signs 06/02/24 11:36 Height 6 ft Weight 246 lb BMI 33.4 BP 126/74 Blood Pressure Location Rt brachial Position Sitting Respiration 18 Pulse 74 Pulse Source Pulse Oximeter Temp 98.2 F Temp Source Oral Pulse Oximetry (%) 96 Oxygen Delivery Method Room Air Intake Visit Reasons: Annual Physical Allergies lactose Allergy (Unknown, Verified 06/02/24 11:36) GI upset Seasonal Allergies Allergy (Unknown, Verified 06/02/24 11:36) Unknown Medication List - Last Reconciled 06/02/24 by Sanjuana Balbuena MD blood sugar diagnostic (FreeStyle Lite Strips) Check blood sugar once daily As directed blood-glucose meter (FreeStyle Lite Meter kit) Check blood sugar once daily As directed fluticasone propionate 50 mcg/actuation (Flonase Allergy Relief) 1 spray intranasal DAILY lancets (FreeStyle Lancets) Check blood sugar once daily As directed metformin 850 mg PO DAILY sertraline 25 mg PO DAILY 90 days Tobacco use date assessed: 06/02/24 Dental Screening Dental Screen Date: 06/02/24 Did you have a dental visit in the last 12 months?: Yes Did you have a dental problem in the last 6 months where you did not have access to dental care?: No Was dental information given to patient?: Patient has dentist HPI Annual Physical HPI Details - The patient is a 39-year-old male pres enting for a physical exam and management of Type 2 Diabetes Mellitus and anxiety. - Reports average blood glucose control with metformin, influenced by frequent dietary choices. - Desires to discontinue sertraline due to concerns of weight gain, seeking advice on safe cessation. - Diagnosed with dyslipidemia; however, the patient prefers lifestyle modifications to reduce cholesterol levels at this time. - Chronic joint stiffness attributed to age but no acute exacerbations noted. Health Maintenance - Discussion of high LDL cholesterol con cerning cardiovascular risk, patient advised to consider medication but opted for weight management approach. - Recommended monitoring Hemoglobin A1c due to diabetes management considerations. 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 - Travels frequently to [facility] for work, enjoying cultural and culinary experiences. Diagnostic results - Labs: LDL cholesterol 150 mg/dL, sugge stive of dyslipidemia. - Prior labs reported to be conducted wi th follow-up on A1c suggested. Patient Instructions - Continue metformin 850 mg daily as pre scribed. - Consider options for discontinuing ser traline: either cease immediately, reduce gradually over a few days by takingg every other day for one week. - Plan on completing fasting labs, inclu ding A1c, before the end of the month. Follow-up six-month, physical exam 1 year Review of Systems - General: Reports improved overall feel ing but notes joint stiffness. - Respiratory: Denies chronic cough beyo nd occasional cold symptoms. - Musculoskeletal: Reports joint stiffne ss, attributing this to getting older. - Skin: Denies skin problems. - Neurological: No headaches no dizzin ess - Ear nose throat: No sore throat no hearing difficulty no ear pain - Cardiovascular: No syncope, no chest pain, no palpitations - Gastrointestinal: No nausea vomiting or diarrhea - Endocrine: No polyuria polydipsia no heat intolerance - Genitourinary: No dysuria Physical Exam General: Cooperative, healthy appearing, comfortable, no acute distress Orientation: Patient oriented x3 Limitations: None Head: Normal to inspection Ears: Within normal limit visually Nose: Normal external nose present Face and sinus: Normal facial exam Eyes: Appearance normal, extraocular movement intact pupils reactive Neck: Normal visual inspection and supple Respiratory: Normal respiratory effort and able to speak in complete sentences. Clear to auscultation, no stridor Cardiovascular: S1 and S2 GI: Normal to inspection. Soft to palpation and nontender Skin: Turgor normal, no acute findings Neuro: Patient oriented x3, motor sensory intact, balance intact, tandem pass Extremities: Normal to inspection, joints get stiffer faster now [facility] Medical History Pre-diabetes Lipid disorder Asthma, intermittent Anxiety, generalized Surgical History History of wisdom tooth extraction Family History Father No problems noted. Mother HTN (hypertension) Mental health disorder Maternal Grandfather No problems noted. Maternal Grandmother No problems noted. Paternal Grandfather No problems noted. Paternal Grandmother No problems noted. Sister No problems noted. Daughter No problems noted. Social History Housing: House Alcohol intake: current Alcohol intake frequency: a few times a month Patient Tobacco Use Status: Never used Tobacco e-Cigarette/Vaping Use: Never Used service: No Current occupational status: employed Cognitive needs: No Hearing needs: No Vision needs: No Questionnaire PHQ-9 Over the last 2 weeks, how often have you been bothered by any of the following problems? 1. Little interest or pleasure in doing things: not at all 2. Feeling down, depressed, or hopeless: not at all 3. Trouble falling or staying asleep, or sleeping too much: not at all 4. Feeling tired or having little energy: not at all 5. Poor appetite or overeating: not at all 6. Feeling bad about yourself - or that you are a failure or have let yourself or your family down: not at all 7. Trouble concentrating on things, such as reading the newspaper or watching television: not at all 8. Moving or speaking so slowly that other people could have noticed. Or the opposite - being so fidgety or restless that you have been moving around a lot more than usual: not at all 9. Thoughts that you would be better off or of hurting yourself in some way: not at all Total score: 0 Depression Screening Interpretation: Negative Depression Screening Done: Yes 35307 - PHQ-9 Billing: Yes Source: Developed by Drs. Jones Brian, Zainab Putnam, Edmond Hansen and colleagues, with an educational ann from [employer]. Thrive Questionnaire Date Thrive assessed: 06/02/24 I am a: Patient What is your living situation today?: I have a steady place to live Within the past 12 months, did the food you bought not last and you didn't have the money to get more?: Never true Within the past 12 months, did you worry whether your food would run out before you got money to buy more?: Never true Do you have trouble paying for medicines?: No Do you have trouble getting transportation to medical appointments?: No Do you have trouble paying your heating and electricity bill?: No Do you have trouble taking care of your child, family member or friend?: No Do you have trouble with day-to-day activities such as bathing, preparing meals, shopping, managing finances, etc.?: No Are you currently unemployed and looking for a job?: No Are you interested in more education?: No Please select the resources that you would like help with: None Currently or been in a relationship where the following occur: No concerns reported THRIVE Score: 0 AUDIT C Alcohol Use Questionnaire (AUDIT-C) 1. How often do you have a drink containing alcohol?: 2-4 times a month 2. How many drinks containing alcohol do you have on a typical day when you are drinking?: 1 or 2 3. How often do you have six or more drinks on one occasion?: Never Total Score: 2 Score Reviewed/Action Taken: Yes LETICIA-7 AMB Questionnaire LETICIA-7 Date LETICIA - 7 assessed: 06/02/24 Feeling nervous, anxious, or on edge: 0 = Not at all Not being able to stop or control worryin = Not at all Worrying too much about different things: 0 = Not at all Trouble relaxin = Not at all Being so restless that it is hard to sit still: 0 = Not at all Becoming easily annoyed or irritable: 0 = Not at all Feeling afraid as if something awful might happen: 0 = Not at all Total LETICIA-7 score (0-4 normal; 5-9 mild; 10-14 moderate; 15-21 severe): 0 Source: Developed by Drs. Jones Brian, Zainab Putnam, Edmond Hansen and colleagues, with an educational nan from [employer]. LETICIA-7 Assessment Billing LETICIA-7 Assessment Tool: LETICIA-7 Assessment 11697 Physical exam (Primary Care) Vital Signs: Last Vital Signs Temp 98.2 F 06/02/24 11:36 Pulse 74 06/02/24 11:36 Resp 18 06/02/24 11:36 BP 126/74 06/02/24 11:36 Pulse Ox 96 06/02/24 11:36 Oxygen Delivery Method Room Air 06/02/24 11:36 BMI result Body Mass Index 33.4 Tobacco/Smoking Status: Tobacco use Status Tobacco use date assessed 06/02/24 06/02/24 11:37 Patient Tobacco Use Status Never used Tobacco 06/02/24 11:37 e-Cigarette/Vaping Use Never Used 06/02/24 11:37 PHQ-9: PHQ-9 Score PHQ-9: Total score 0 06/02/24 11:37 Depression Screening Interpretation: Negative Thrive Assessment: Date of Thrive Assessment Date Thrive assessed 06/02/24 06/02/24 11:37 Currently or been in a relationship where the following occur: No concerns reported Coding Level of Care Code Est Pt Level 3 (05520) Est Pt Prev Care 40-64y(22674) Diagnoses Encounter for general adult medical examination with abnormal findings Z00.01 Controlled type 2 diabetes mellitus with other specified complication, without long-term current use of insulin E11.69 Diabetes mellitus complication status: with other specified complication Diabetes mellitus intermodal truck driver insulin use: without intermodal truck driver use Class 1 obesity due to excess calories without serious comorbidity with body mass index (BMI) of 33.0 to 33.9 in adult E66.09; Z68.33 Body mass index: BMI 33.0-33.9 Obesity classification: adult class 1 (BMI 30 - 34.9) Serious obesity comorbidity presence: without serious comorbidity Anxiety, generalized F41.1 Lipid disorder E78.9 Additional Codes LETICIA-7 Assessment Billing - LETICIA-7 Assessment Tool: LETICIA-7 Assessment 14051 ([id number]) PHQ-9 - 12190 - PHQ-9 Billing: Yes ([id number]) Assessment & Plan Assessment & Plan (1) Encounter for general adult medical examination with abnormal findings: Code(s): Z00.01 - Encounter for general adult medical examination with abnormal findings Category: Medical (2) Diabetes mellitus type 2, controlled: Code(s): E11.9 - Type 2 diabetes mellitus without complications Category: Medical Qualifiers: Diabetes mellitus complication status: with other specified complication Diabetes mellitus intermodal truck driver insulin use: without intermodal truck driver use Qualified Code(s): E11.69 - Type 2 diabetes mellitus with other specified complication (3) Obesity due to excess calories: Code(s): E66.09 - Other obesity due to excess calories Category: Medical Qualifiers: Body mass index: BMI 33.0-33.9 Obesity classification: adult class 1 (BMI 30 - 34.9) Serious obesity comorbidity presence: without serious comorbidity Qualified Code(s): E66.09 - Other obesity due to excess calories; Z68.33 - Body mass index [BMI] 33.0-33.9, adult (4) Anxiety, generalized: Code(s): F41.1 - Generalized anxiety disorder Category: Medical (5) Lipid disorder: Code(s): E78.9 - Disorder of lipoprotein metabolism, unspecified Category: Medical Plan - The patient is a 39-year-old male presenting for a physical exam and management of Type 2 Diabetes Mellitus and anxiety. - Reports average blood glucose control with metformin, influenced by frequent dietary choices. - Desires to discontinue sertraline due to concerns of weight gain, seeking advice on safe cessation. - Diagnosed with dyslipidemia; however, the patient prefers lifestyle modifications to reduce cholesterol levels at this time. - Chronic joint stiffness attributed to age but no acute exacerbations noted. Health Maintenance - Discussion of high LDL cholesterol concerning cardiovascular risk, patient advised to consider medication but opted for weight management approach. - Recommended monitoring Hemoglobin A1c due to diabetes management considerations. 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 - Travels frequently to [facility] for work, enjoying cultural and culinary experiences. Diagnostic results - Labs: LDL cholesterol 150 mg/dL, suggestive of dyslipidemia. - Prior labs reported to be conducted with follow-up on A1c suggested. Patient Instructions - Continue metformin 850 mg daily as prescribed. - Consider options for discontinuing sertraline: either cease immediately, reduce gradually over a few days by takingg every other day for one week. - Plan on completing fasting labs, including A1c, before the end of the month. Follow-up six-month, physical exam 1 year Orders: Orders Hemoglobin A1c Today E11.69 - Type 2 diabetes mellitus with other specified complication, E66.09 - Other obesity due to excess calories, E78.9 - Disorder of lipoprotein metabolism, unspecified, F41.1 - Generalized anxiety disorder, Z00.01 - Encounter for general adult medical examination with abnormal findings, Z68.33 - Body mass index [BMI] 33.0-33.9, adult Comprehensive [place]. Panel Fast Today E11.69 - Type 2 diabetes mellitus with other specified complication, E66.09 - Other obesity due to excess calories, E78.9 - Disorder of lipoprotein metabolism, unspecified, F41.1 - Generalized anxiety disorder, Z00.01 - Encounter for general adult medical examination with abnormal findings, Z68.33 - Body mass index [BMI] 33.0-33.9, adult Microalbumin, Random (w Creat) Today E11.69 - Type 2 diabetes mellitus with other specified complication, E66.09 - Other obesity due to excess calories, E78.9 - Disorder of lipoprotein metabolism, unspecified, F41.1 - Generalized anxiety disorder, Z00.01 - Encounter for general adult medical examination with abnormal findings, Z68.33 - Body mass index [BMI] 33.0-33.9, adult Lipid Panel Today E11.69 - Type 2 diabetes mellitus with other specified complication, E66.09 - Other obesity due to excess calories, E78.9 - Disorder of lipoprotein metabolism, unspecified, F41.1 - Generalized anxiety disorder, Z00.01 - Encounter for general adult medical examination with abnormal findings, Z68.33 - Body mass index [BMI] 33.0-33.9, adult Medications: Refilled metformin 850 mg PO DAILY 90 tabs 1RF blood sugar diagnostic (FreeStyle Lite Strips) Check blood sugar once daily As directed 100 ea 1RF E11.9 - Type 2 diabetes mellitus without complications
== END 2024-06-02 12:15 | disposition home or self-care (01) ==
PROVIDERS: PCP Internal Medicine; Visit Provider Internal Medicine
DX: Z00.01 Encounter for general adult medical examination with abnormal findings (principal); E11.69 Type 2 diabetes mellitus with other specified complication; E66.09 Other obesity due to excess calories; Z68.33 Body mass index [BMI] 33.0-33.9, adult; F41.1 Generalized anxiety disorder; E78.9 Disorder of lipoprotein metabolism, unspecified; Z23 Encounter for immunization

== ENCOUNTER → 2024-06-02 11:34 | Outpatient (BNVA) | payer BC, SELFPAY | PROVIDERS: PCP Internal Medicine; Visit Provider Internal Medicine | DX: Z00.01 Encounter for general adult medical examination with abnormal findings (principal); Z23 Encounter for immunization; E11.69 Type 2 diabetes mellitus with other specified complication; E66.09 Other obesity due to excess calories; Z68.33 Body mass index [BMI] 33.0-33.9, adult; F41.1 Generalized anxiety disorder; E78.9 Disorder of lipoprotein metabolism, unspecified; Z79.84 Long term (current) use of oral hypoglycemic drugs; Z79.899 Other long term (current) drug therapy | CPT/HCPCS: 90471; 90715; 96127 ==

== ENCOUNTER 2024-07-31 08:28 | Outpatient (REF) | payer BC, SELFPAY ==
[2024-07-31 12:01] LABS: Estimated Average Glucose 143 mg/dL; Hemoglobin A1C 173.7915 umol/L; Hemoglobin A1c % 6.6 % (<6.0); Total Hemoglobin (HGBA1C) 3574.7035 umol/L
[2024-07-31 12:09] LABS: Alanine Aminotransferase 53 U/L (0-40); Albumin Level 4.3 g/dL (3.5-5.0); Alkaline Phosphatase 59 U/L (39-117); Anion Gap 10 (12-20); Aspartate Amino Transferase 32 U/L (5-37); Bilirubin Total 0.4 mg/dL (0.0-1.0); Blood Urea Nitrogen 13 mg/dL (9-16); Calcium 9.3 mg/dL (8.4-10.2); Carbon Dioxide 24 mmol/L (22-29); Chloride 109 mmol/L (96-108); Cholesterol 185 mg/dL (<200); Estimated Glomerular Filt Rate > 60; Glucose Fasting 138 mg/dL (60-99); HDL Cholesterol 31 mg/dL (>40); LDL Cholesterol Calculated 130 mg/dL (<100); Potassium 4.1 mmol/L (3.3-5.1); Sodium 139 mmol/L (135-145); Total Protein 7.4 g/dL (6.5-8.0); Triglycerides 123 mg/dL (<150)
[2024-07-31 12:18] LABS: Creatinine Urine 311.43 mg/dL; Microalbum/Creatinine Ratio Ur 6.1 ug/mg cr (<30)
== END 2024-07-31 08:29 | disposition home or self-care (01) ==
LOC: HO.HMGCLDS 08:28
PROVIDERS: PCP Internal Medicine; Visit Provider Internal Medicine
DX: Z00.01 Encounter for general adult medical examination with abnormal findings (principal); E11.69 Type 2 diabetes mellitus with other specified complication; E66.09 Other obesity due to excess calories; Z68.33 Body mass index [BMI] 33.0-33.9, adult; F41.1 Generalized anxiety disorder; E78.9 Disorder of lipoprotein metabolism, unspecified
CPT/HCPCS: 36415; 80053; 80061; 82043; 82570; 83036

== ENCOUNTER 2024-11-30 09:14 | Outpatient (AMB) | payer BC, SELFPAY ==
[2024-11-30 09:31] VITALS: BP 122/72; PULSE 76; O2SAT 98; BMI 32.4
--- NOTE | 2024-11-30 09:31 | A.OFFPC_ITS ---
Vital Signs 11/30/24 09:31 Height 6 ft Weight 239 lb BMI 32.4 BP 122/72 Blood Pressure Location Lt brachial Position Sitting Pulse 76 Pulse Source Pulse Oximeter Pulse Oximetry (%) 98 Intake Visit Reasons: 6 month follow up Allergies lactose Allergy (Unknown, Verified 11/30/24 09:31) GI upset Seasonal Allergies Allergy (Unknown, Verified 11/30/24 09:31) Unknown Medication List - Last Reconciled 11/30/24 by Sanjuana Balbuena MD blood sugar diagnostic (FreeStyle Lite Strips) Check blood sugar once daily As directed blood-glucose meter (FreeStyle Lite Meter kit) Check blood sugar once daily As directed lancets (FreeStyle Lancets) Check blood sugar once daily As directed metformin 850 mg PO DAILY Tobacco use date assessed: 06/02/24 Dental Screening Dental Screen Date: 06/02/24 HPI 6 month follow up HPI Details Chief complaint - Type 2 Diabetes Mellitus, managed with metformin - Mental health history includes previou s use of sertraline - obesity - right leg pain above knee after prolon ged walking and standing History of Present Illness - The patient is a 39-year-old male pres enting with concerns of muscular tightness in the hamstrings after extended periods of standing and walking at work. Notably, the right hamstring is more affected than the left. - The tightness started coinciding with the increased physical demands of his job, where he reports standing and walking for approximately 10 hours a day. - Despite increased activity, the patien t denies any cramping, loose stools, or diarrhea associated with metformin use. - The patient also notes a history of hy perlipidemia, with LDL cholesterol levels decreasing from 150 mg/dL in February to 130 mg/dL in July, attributed to dietary changes. - Changes included eliminating sugary cr eamers, reducing beef intake, and replacing with seafood. 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 - Weight management: BMI is elevated at 32.4, and the patient is actively making dietary changes Diagnostic Results: - Labs: LDL cholesterol reduced from 150 mg/dL in February to 130 mg/dL in July Problem List - Type 2 Diabetes Mellitus - Hyperlipidemia - Seasonal Allergies - obesity Patient Instructions - Continue with Tara for allergy flakito wright as it is effectively providing relief - Schedule and attend physical therapy t o address hamstring tightness - Follow prescribed dietary adjustments to maintain improved lipid levels - Attend upcoming physical examination may - Follow up in six months for further ev aluation and labs Review of Systems - General: No fever no chills - Neurological: No headaches no dizziness - Ear nose throat: No sore throat no hearing difficulty no ear pain - Cardiovascular: No syncope, no chest pain, no palpitations - Gastrointestinal: No nausea vomiting or diarrhea - Endocrine: No polyuria polydipsia no heat intolerance - Genitourinary: No dysuria , no blood in urine Physical Exam General: No acute distress HEENT: No acute findings Neck: Supple Respiratory system: Able to talk in full sentences, no audible wheeze Cardiovascular: S1-S2 regular in rate and rhythm Gastrointestinal: No pain Extremities: Tight hamstrings, more noticeable on the right side [employer]: Alert awake oriented x3 motor sensory intact Skin: Normal turgor PFSH Medical History Pre-diabetes Lipid disorder Asthma, intermittent Anxiety, generalized Surgical History History of wisdom tooth extraction Family History Father No problems noted. Mother HTN (hypertension) Mental health disorder Maternal Grandfather No problems noted. Maternal Grandmother No problems noted. Paternal Grandfather No problems noted. Paternal Grandmother No problems noted. Sister No problems noted. Daughter No problems noted. Social History Housing: House Alcohol intake: current Alcohol intake frequency: a few times a month Patient Tobacco Use Status: Never used Tobacco e-Cigarette/Vaping Use: Never Used service: No Current occupational status: employed Cognitive needs: No Hearing needs: No Vision needs: No Questionnaire Thrive Questionnaire Date Thrive assessed: 11/30/24 I am a: Patient What is your living situation today?: I have a steady place to live Within the past 12 months, did the food you bought not last and you didn't have the money to get more?: Never true Within the past 12 months, did you worry whether your food would run out before you got money to buy more?: Never true Do you have trouble paying for medicines?: No Do you have trouble getting transportation to medical appointments?: No Do you have trouble paying your heating and electricity bill?: No Do you have trouble taking care of your child, family member or friend?: No Do you have trouble with day-to-day activities such as bathing, preparing meals, shopping, managing finances, etc.?: No Are you currently unemployed and looking for a job?: No Are you interested in more education?: No Please select the resources that you would like help with: None Currently or been in a relationship where the following occur: No concerns reported THRIVE Score: 0 LETICIA-7 AMB Questionnaire LETICIA-7 Date LETICIA - 7 assessed: 06/02/24 Source: Developed by Drs. oJnes Brian, Zainab Putnam, Edmond Hansen and colleagues, with an educational ann from [email or web address]. Physical exam (Primary Care) Vital Signs: Last Vital Signs Pulse 76 11/30/24 09:31 BP 122/72 11/30/24 09:31 Pulse Ox 98 11/30/24 09:31 BMI result Body Mass Index 32.4 Tobacco/Smoking Status: Tobacco use Status Tobacco use date assessed 06/02/24 11/30/24 09:31 Patient Tobacco Use Status Never used Tobacco 11/30/24 09:31 e-Cigarette/Vaping Use Never Used 11/30/24 09:31 Thrive Assessment: Date of Thrive Assessment Date Thrive assessed 11/30/24 11/30/24 09:31 Currently or been in a relationship where the following occur: No concerns reported Results AMB Hemoglobin A1c AMB Hemoglobin A1c 6.8 % Last Edit by Helder Beck CMA on 11/30/24 09: 47 Results Reviewed Results Reviewed: Laboratory Last Values Hgb A1c (Clinic) 6.8 % (4.0-6.0) H 11/30/24 09:44 Coding Level of Care Code Est Pt Level 4 (45517) Diagnoses Diet-controlled diabetes mellitus E11.9 Strain of right hamstring muscle, initial encounter S76.311A Encounter type: initial encounter Laterality: right Lipid disorder E78.9 Class 1 obesity due to excess calories without serious comorbidity with body mass index (BMI) of 33.0 to 33.9 in adult E66.09; Z68.33 Body mass index: BMI 33.0-33.9 Obesity classification: adult class 1 (BMI 30 - 34.9) Serious obesity comorbidity presence: without serious comorbidity Mild intermittent asthma without complication J45.20 Asthma complication type: uncomplicated Asthma severity: mild Assessment & Plan Assessment & Plan (1) Diet-controlled diabetes mellitus: Code(s): E11.9 - Type 2 diabetes mellitus without complications Category: Medical (2) Hamstring muscle strain: Code(s): S76.319A - Strain of muscle, fascia and tendon of the posterior muscle group at thigh level, unspecified thigh, initial encounter Category: Medical Qualifiers: Encounter type: initial encounter Laterality: right Qualified Code(s): S76.311A - Strain of muscle, fascia and tendon of the posterior muscle group at thigh level, right thigh, initial encounter (3) Lipid disorder: Code(s): E78.9 - Disorder of lipoprotein metabolism, unspecified Category: Medical (4) Obesity due to excess calories: Code(s): E66.09 - Other obesity due to excess calories Category: Medical Qualifiers: Body mass index: BMI 33.0-33.9 Obesity classification: adult class 1 (BMI 30 - 34.9) Serious obesity comorbidity presence: without serious comorbidity Qualified Code(s): E66.09 - Other obesity due to excess calories; Z68.33 - Body mass index [BMI] 33.0-33.9, adult (5) Asthma, intermittent: Code(s): J45.20 - Mild intermittent asthma, uncomplicated Category: Medical Qualifiers: Asthma complication type: uncomplicated Asthma severity: mild Qualified Code(s): J45.20 - Mild intermittent asthma, uncomplicated Plan Chief complaint - right leg pain above knee after prolonged standing and walking - Type 2 Diabetes Mellitus, managed with metformin - Mental health history includes previous use of sertraline - lipid disorder History of Present Illness - The patient is a 39-year-old male presenting with concerns of muscular tightness in the hamstrings after extended periods of standing and walking at work. Notably, the right hamstring is more affected than the left. - The tightness started coinciding with the increased physical demands of his job, where he reports standing and walking for approximately 10 hours a day. - Despite increased activity, the patient denies any cramping, loose stools, or diarrhea associated with metformin use. - The patient also notes a history of hyperlipidemia, with LDL cholesterol levels decreasing from 150 mg/dL in February to 130 mg/dL in July, attributed to dietary changes. - Changes included eliminating sugary creamers, reducing beef intake, and replacing with seafood. Medications: - Metformin 850 mg once daily for type 2 diabetes management - Switched from cetirizine (Zyrtec) to fexofenadine (Tara) for allergy management Social History: - Employment: Engaged in a physically demanding occupation involving standing and walking for extended hours daily - Exercise: The patient's job includes considerable physical activity - Nutrition: Modified dietary habits to decrease beef intake and eliminate sugary coffee creamers - Travel: Reports frequent international travel to [place], particularly [place] and [place], related to work. - Weight management: BMI is elevated at 32.4, and the patient is actively making dietary changes Diagnostic Results: - Labs: LDL cholesterol reduced from 150 mg/dL in February to 130 mg/dL in July Problem List - Type 2 Diabetes Mellitus - Hyperlipidemia - Seasonal Allergies - obesity Patient Instructions - Continue with Tara for allergy management as it is effectively providing relief - Schedule and attend physical therapy to address hamstring tightness - Follow prescribed dietary adjustments to maintain improved lipid levels - Attend upcoming physical examination in May Orders: Orders Comprehensive Met. Panel Today E11.9 - Type 2 diabetes mellitus without complications, E66.09 - Other obesity due to excess calories, E78.9 - Disorder of lipoprotein metabolism, unspecified, J45.20 - Mild intermittent asthma, uncomplicated, Z68.33 - Body mass index [BMI] 33.0-33.9, adult LDL Cholesterol Direct Today E78.9 - Disorder of lipoprotein metabolism, unspecified AMB Hemoglobin A1c Today Z13.9 - Encounter for screening, unspecified Hemoglobin A1c Today E11.9 - Type 2 diabetes mellitus without complications, E66.09 - Other obesity due to excess calories, E78.9 - Disorder of lipoprotein metabolism, unspecified, J45.20 - Mild intermittent asthma, uncomplicated, Z68.33 - Body mass index [BMI] 33.0-33.9, adult PT Evaluation and Treatment Today S76.319A - Strain of muscle, fascia and tendon of the posterior muscle group at thigh level, unspecified thigh, initial encounter Medications: Refilled metformin 850 mg PO DAILY 90 tabs 1RF
== END 2024-11-30 10:09 | disposition home or self-care (01) ==
LOC: HO.HMCC 09:15
PROVIDERS: PCP Internal Medicine; Visit Provider Internal Medicine
DX: E11.9 Type 2 diabetes mellitus without complications (principal); S76.311A Strain of muscle, fascia and tendon of the posterior muscle group at thigh level, right thigh, initial encounter; E78.9 Disorder of lipoprotein metabolism, unspecified; E66.09 Other obesity due to excess calories; Z68.33 Body mass index [BMI] 33.0-33.9, adult; J45.20 Mild intermittent asthma, uncomplicated; Z13.9 Encounter for screening, unspecified

== ENCOUNTER → 2024-11-30 09:14 | Outpatient (BNVA) | payer BC, SELFPAY | PROVIDERS: PCP Internal Medicine; Visit Provider Internal Medicine | DX: E11.9 Type 2 diabetes mellitus without complications (principal); E78.5 Hyperlipidemia, unspecified; S76.311A Strain of muscle, fascia and tendon of the posterior muscle group at thigh level, right thigh, initial encounter; E66.09 Other obesity due to excess calories; J45.20 Mild intermittent asthma, uncomplicated; X58.XXXA Exposure to other specified factors, initial encounter; Y93.9 Activity, unspecified; Y92.9 Unspecified place or not applicable; Y99.9 Unspecified external cause status; Z79.84 Long term (current) use of oral hypoglycemic drugs; Z68.33 Body mass index [BMI] 33.0-33.9, adult | CPT/HCPCS: 83036 ==